=== PATIENT | male | born 1985 | race Asian ===

== ENCOUNTER → 2024-01-28 | Outpatient (CLI) | payer MEDICAID ==
[~2024-01-28] MED LIST: GADOTERATE MEGLUMINE 7.5 MMOL/15 ML VIAL IV ONE
== END | disposition home or self-care (01) ==
LOC: MRI 07:48
PROVIDERS: ATTEND Family Medicine
DX: H93.12 Tinnitus, left ear (principal); J30.2 Other seasonal allergic rhinitis; R68.89 Other general symptoms and signs; J06.9 Acute upper respiratory infection, unspecified; H92.02 Otalgia, left ear
CPT/HCPCS: 70553; A9575